=== PATIENT | male | born 1930 | race Caucasian/White ===

== ENCOUNTER 2021-03-18 13:49 | Inpatient (IN) | payer OTHER ==
[2021-03-18 14:34] VITALS: BMI 22.4
[2021-03-18] MEDS ORDERED: AZITHROMYCIN IVPB 500 MG in DEXTROSE 5%-WATER - 250 ML IVPB ONE (14:46)
[2021-03-18] MEDS ORDERED: CEFTRIAXONE 1 GM in DEXTROSE 5%-WATER - 50 ML IVPB ONE (14:46)
[2021-03-18] MEDS ORDERED: DEXAMETHASONE SOD PHOSPHATE 10 MG/1 ML VIAL IVPUSH ONE (14:46)
[2021-03-18] MEDS ORDERED: DEXAMETHASONE SOD PHOSPHATE 10 MG/1 ML VIAL ONE (14:50)
[2021-03-18] MEDS ORDERED: CEFTRIAXONE 1 GM/50 ML BAG ONE (14:50)
[2021-03-18 14:53] LABS: BASO % 0.5 % (0-2.0); EOS % 0.1 % (0-4.5); HEMATOCRIT 34.9 % (35.4-49); HEMOGLOBIN 11.4 GM/dL (11.7-16.9); LYMPH % 15.8 % (8-40); MCH 30.4 pg (25.7-33.7); MCHC 32.6 g/dl (32.0-35.9); MEAN CELL VOLUME 93.5 fl (80-96); MONO % 4.3 % (3.8-10.2); NEUT % 79.3 % (42.8-82.8); PLATELET COUNT 278 10^3/uL (134-434); RBC 3.73 M/mm3 (4.00-5.60); RDW 20.3 % (11.9-15.9); WHITE BLOOD COUNT 10.1 K/mm3 (4.0-10.0)
[2021-03-18] MEDS ORDERED: AZITHROMYCIN IVPB 500 MG/250 ML BAG IVPB ONE (15:10)
[2021-03-18 15:11] LABS: CHLORIDE 102 mmol/L (98-107); SODIUM 139 mmol/L (136-145)
[2021-03-18 15:14] LABS: ALBUMIN 2.6 g/dl (3.4-5.0); ANION GAP 3 MMOL/L (8-16); CO2 33 mmol/L (21-32); GLUCOSE,RANDOM 98 mg/dL (74-106)
[2021-03-18 15:17] LABS: SGOT/AST 35 U/L (15-37); SGPT/ALT 25 U/L (13-61)
[2021-03-18 15:18] LABS: CREATININE 1.5 mg/dL (0.55-1.3)
[2021-03-18 15:19] LABS: BILIRUBIN,TOTAL 0.6 mg/dL (0.2-1); TOT PROT 5.9 g/dl (6.4-8.2)
[2021-03-18 15:20] LABS: ALK PHOS 103 U/L (45-117)
[2021-03-18 15:40] LABS: ANISOCYTOSIS 0; MACROCYTOSIS 0; PLATELET ESTIMATE NORMAL
[2021-03-18] MEDS ORDERED: VANCOMYCIN 1 GM in D5W (PRE-DOCKED) 1,000 MG/250 ML IVPB ONE (16:59)
[2021-03-18 17:41] LABS: VENOUS PCO2 65.4 mmHg (38-52); VENOUS PH 7.38 (7.310-7.410)
[2021-03-18 17:42] LABS: BLOOD UREA NITROGEN 90.3 mg/dL (7-18); VENOUS BASE EXCESS 10.4 mmol/L (-2-2)
[2021-03-18 17:43] LABS: VENOUS O2 SATURATION 64.5 % (70-80)
[2021-03-18 17:45] LABS: CREATININE 1.6 mg/dL (0.55-1.3)
[2021-03-18] MEDS ORDERED: VANCOMYCIN 1 GRAM (PRE-DOCKED) 1,000 MG/250 ML BAG IVPB ONE (17:55)
[2021-03-18] MEDS ORDERED: ACETAMINOPHEN 325 MG TABLET (FP) PO PRN (18:07)
[2021-03-18] MEDS: DEXTROSE 5%-0.45% SALINE 1,000 ML IV SCH (18:42)
[2021-03-19 06:47] LABS: HEMATOCRIT 33.4 % (35.4-49); HEMOGLOBIN 10.9 GM/dL (11.7-16.9); MCH 30.6 pg (25.7-33.7); MCHC 32.7 g/dl (32.0-35.9); MEAN CELL VOLUME 93.6 fl (80-96); MEAN PLT VOLUME 8.2 fl (7.5-11.1); PLATELET COUNT 285 10^3/uL (134-434); RBC 3.57 M/mm3 (4.00-5.60); RDW 19.9 % (11.9-15.9); WHITE BLOOD COUNT 11.1 K/mm3 (4.0-10.0)
[2021-03-19 07:02] LABS: ALBUMIN 2.7 g/dl (3.4-5.0)
[2021-03-19 07:05] LABS: CREATININE 1.7 mg/dL (0.55-1.3)
[2021-03-19 07:06] LABS: BILIRUBIN,TOTAL 0.6 mg/dL (0.2-1); TOT PROT 5.9 g/dl (6.4-8.2)
[2021-03-19] MEDS ORDERED: DEXAMETHASONE SOD PHOSPHATE 10 MG/1 ML VIAL ONE (08:59)
[2021-03-19] MEDS ORDERED: ENOXAPARIN NA (PORCINE) 40 MG/0.4 ML DISP.SYRIN SQ ONE (08:59)
[2021-03-19] MEDS ORDERED: PANTOPRAZOLE SODIUM 40 MG VIAL ONE (08:59)
[2021-03-19] MEDS: PANTOPRAZOLE SODIUM 40 MG VIAL IVPUSH SCH (09:22)
[2021-03-19] MEDS: ENOXAPARIN NA (PORCINE) 40 MG/0.4 ML DISP.SYRIN SQ SCH (09:22)
[2021-03-19] MEDS ORDERED: DEXAMETHASONE SOD PHOSPHATE 10 MG/1 ML VIAL IVPUSH SCH (10:00)
[2021-03-19 10:25] LABS: ANISOCYTOSIS 1+; MACROCYTOSIS 0; PLATELET ESTIMATE NORMAL
[2021-03-19] MEDS ORDERED: methylPREDNISolone NA SUCC 40 MG/1 ML VIAL ONE (12:00)
[2021-03-19] MEDS: methylPREDNISolone NA SUCC 40 MG/1 ML VIAL IVPUSH SCH ×2 (12:17→17:55)
[2021-03-19] MEDS ORDERED: ALBUTEROL SO4 2.5/IPRATROPIUM 0.5 INH SOL 3 ML VIAL.NEB. NEB ONE (14:18)
[2021-03-19] MEDS ORDERED: SODIUM ZIRCONIUM CYCLOSILICATE (LOKELMA) 5 GM PACKET ONE (14:18)
[2021-03-19] MEDS: SODIUM ZIRCONIUM CYCLOSILICATE (LOKELMA) 5 GM PACKET PO SCH (14:43)
[2021-03-19] MEDS: ALBUTEROL SO4 2.5/IPRATROPIUM 0.5 INH SOL 3 ML VIAL.NEB. NEB SCH ×2 (14:43→21:01)
[2021-03-19] MEDS ORDERED: DEXTROSE 5%-WATER - 50 ML IVPB ONE (16:51)
[2021-03-19] MEDS ORDERED: cefTRIAXone SODIUM 1 GM VIAL ONE (16:51)
[2021-03-19] MEDS: CEFTRIAXONE 1 GM in DEXTROSE 5%-WATER - 50 ML IVPB SCH (16:54)
[2021-03-19] MEDS: DEXTROSE 5%-0.45% SALINE 1,000 ML IV SCH (21:56)
[2021-03-20] MEDS: methylPREDNISolone NA SUCC 40 MG/1 ML VIAL IVPUSH SCH ×3 (01:11→17:27)
[2021-03-20 07:26] LABS: HEMATOCRIT 27.4 % (35.4-49); HEMOGLOBIN 9.1 GM/dL (11.7-16.9); MCH 30.4 pg (25.7-33.7); MEAN CELL VOLUME 91.9 fl (80-96); MEAN PLT VOLUME 8.2 fl (7.5-11.1); PLATELET COUNT 187 10^3/uL (134-434); RBC 2.98 M/mm3 (4.00-5.60); RDW 19.6 % (11.9-15.9); WHITE BLOOD COUNT 7.8 K/mm3 (4.0-10.0)
[2021-03-20 07:36] LABS: CALCIUM 8.3 mg/dL (8.5-10.1)
[2021-03-20 07:37] LABS: ALBUMIN 2.4 g/dl (3.4-5.0); BLOOD UREA NITROGEN 103.9 mg/dL (7-18)
[2021-03-20 07:40] LABS: CREATININE 1.6 mg/dL (0.55-1.3)
[2021-03-20] MEDS: ALBUTEROL SO4 2.5/IPRATROPIUM 0.5 INH SOL 3 ML VIAL.NEB. NEB SCH ×3 (07:40→19:48)
[2021-03-20 07:41] LABS: TOT PROT 5.3 g/dl (6.4-8.2)
[2021-03-20 07:42] LABS: BILIRUBIN,TOTAL 0.4 mg/dL (0.2-1)
[2021-03-20 08:53] LABS: ANISOCYTOSIS 1+; MACROCYTOSIS 1+; PLATELET ESTIMATE NORMAL
[2021-03-20] MEDS ORDERED: DEXTROSE 5%-WATER - 50 ML IVPB ONE (10:37)
[2021-03-20] MEDS ORDERED: cefTRIAXone SODIUM 1 GM VIAL ONE (10:37)
[2021-03-20] MEDS: PANTOPRAZOLE SODIUM 40 MG VIAL IVPUSH SCH (10:45)
[2021-03-20] MEDS: ENOXAPARIN NA (PORCINE) 40 MG/0.4 ML DISP.SYRIN SQ SCH (10:45)
[2021-03-20] MEDS: SODIUM ZIRCONIUM CYCLOSILICATE (LOKELMA) 5 GM PACKET PO SCH (10:45)
[2021-03-20] MEDS: CEFTRIAXONE 1 GM in DEXTROSE 5%-WATER - 50 ML IVPB SCH (10:46)
[2021-03-20] MEDS: DEXTROSE 5%-0.45% SALINE 1,000 ML IV SCH (10:58)
[2021-03-21] MEDS: methylPREDNISolone NA SUCC 40 MG/1 ML VIAL IVPUSH SCH ×3 (02:11→17:27)
[2021-03-21] MEDS: DEXTROSE 5%-0.45% SALINE 1,000 ML IV SCH ×2 (02:11→13:23)
[2021-03-21 07:26] LABS: HEMATOCRIT 26.8 % (35.4-49); HEMOGLOBIN 8.6 GM/dL (11.7-16.9); MCH 30.3 pg (25.7-33.7); MCHC 32.1 g/dl (32.0-35.9); MEAN CELL VOLUME 94.6 fl (80-96); PLATELET COUNT 172 10^3/uL (134-434); RBC 2.83 M/mm3 (4.00-5.60); RDW 19.2 % (11.9-15.9); WHITE BLOOD COUNT 7.8 K/mm3 (4.0-10.0)
[2021-03-21 07:47] LABS: CALCIUM 8.4 mg/dL (8.5-10.1)
[2021-03-21 07:48] LABS: ALBUMIN 2.3 g/dl (3.4-5.0); BLOOD UREA NITROGEN 79.8 mg/dL (7-18)
[2021-03-21 08:06] LABS: CREATININE 1.1 mg/dL (0.55-1.3)
[2021-03-21 08:08] LABS: BILIRUBIN,TOTAL 0.2 mg/dL (0.2-1); TOT PROT 5.2 g/dl (6.4-8.2)
[2021-03-21] MEDS: ALBUTEROL SO4 2.5/IPRATROPIUM 0.5 INH SOL 3 ML VIAL.NEB. NEB SCH ×3 (08:14→20:00)
[2021-03-21] MEDS ORDERED: cefTRIAXone SODIUM 1 GM VIAL ONE (09:27)
[2021-03-21] MEDS ORDERED: DEXTROSE 5%-WATER - 50 ML IVPB ONE (09:27)
[2021-03-21 10:02] LABS: ANISOCYTOSIS 0; MACROCYTOSIS 0; PLATELET ESTIMATE NORMAL
[2021-03-21] MEDS: ENOXAPARIN NA (PORCINE) 40 MG/0.4 ML DISP.SYRIN SQ SCH (10:03)
[2021-03-21] MEDS: CEFTRIAXONE 1 GM in DEXTROSE 5%-WATER - 50 ML IVPB SCH (10:03)
[2021-03-21] MEDS: PANTOPRAZOLE SODIUM 40 MG VIAL IVPUSH SCH (10:04)
[2021-03-21] MEDS: SODIUM ZIRCONIUM CYCLOSILICATE (LOKELMA) 5 GM PACKET PO SCH (10:04)
[2021-03-21] MEDS: ZINC SULFATE 220 MG CAPSULE (FP) PO SCH (10:04)
[2021-03-21] MEDS: ASCORBIC ACID 250 MG TABLET (FP) PO SCH (10:04)
[2021-03-21] MEDS ORDERED: ALPRAZolam 0.25 MG TABLET PO PRN (10:12)
[2021-03-21] MEDS: FERROUS SO4 325 MG TABLET (FP) PO SCH (13:23)
[2021-03-22] MEDS: methylPREDNISolone NA SUCC 40 MG/1 ML VIAL IVPUSH SCH ×3 (02:27→17:45)
[2021-03-22 07:43] LABS: HEMATOCRIT 28.1 % (35.4-49); HEMOGLOBIN 9.2 GM/dL (11.7-16.9); MCH 30.6 pg (25.7-33.7); MCHC 32.6 g/dl (32.0-35.9); MEAN CELL VOLUME 93.9 fl (80-96); MEAN PLT VOLUME 7.6 fl (7.5-11.1); PLATELET COUNT 197 10^3/uL (134-434); RBC 2.99 M/mm3 (4.00-5.60); RDW 19.8 % (11.9-15.9); WHITE BLOOD COUNT 9.4 K/mm3 (4.0-10.0)
[2021-03-22] MEDS: ALBUTEROL SO4 2.5/IPRATROPIUM 0.5 INH SOL 3 ML VIAL.NEB. NEB SCH ×3 (07:44→20:00)
[2021-03-22 08:22] LABS: ALBUMIN 2.5 g/dl (3.4-5.0); CALCIUM 8.8 mg/dL (8.5-10.1)
[2021-03-22 08:26] LABS: TOT PROT 5.3 g/dl (6.4-8.2)
[2021-03-22 08:27] LABS: BILIRUBIN,TOTAL 0.4 mg/dL (0.2-1)
[2021-03-22] MEDS ORDERED: cefTRIAXone SODIUM 1 GM VIAL ONE (09:16)
[2021-03-22] MEDS ORDERED: DEXTROSE 5%-WATER - 50 ML IVPB ONE (09:17)
[2021-03-22] MEDS: ENOXAPARIN NA (PORCINE) 40 MG/0.4 ML DISP.SYRIN SQ SCH (09:53)
[2021-03-22] MEDS: PANTOPRAZOLE SODIUM 40 MG VIAL IVPUSH SCH (09:53)
[2021-03-22] MEDS: SODIUM ZIRCONIUM CYCLOSILICATE (LOKELMA) 5 GM PACKET PO SCH (09:54)
[2021-03-22] MEDS: FERROUS SO4 325 MG TABLET (FP) PO SCH (09:54)
[2021-03-22] MEDS: ASCORBIC ACID 250 MG TABLET (FP) PO SCH (09:54)
[2021-03-22] MEDS: ZINC SULFATE 220 MG CAPSULE (FP) PO SCH (09:54)
[2021-03-22] MEDS: CEFTRIAXONE 1 GM in DEXTROSE 5%-WATER - 50 ML IVPB SCH (09:54)
[2021-03-23] MEDS: methylPREDNISolone NA SUCC 40 MG/1 ML VIAL IVPUSH SCH ×3 (01:54→17:33)
[2021-03-23] MEDS: ALBUTEROL SO4 2.5/IPRATROPIUM 0.5 INH SOL 3 ML VIAL.NEB. NEB SCH ×3 (07:39→20:55)
[2021-03-23] MEDS ORDERED: cefTRIAXone SODIUM 1 GM VIAL ONE (08:57)
[2021-03-23] MEDS ORDERED: DEXTROSE 5%-WATER - 50 ML IVPB ONE (08:57)
[2021-03-23] MEDS: PANTOPRAZOLE SODIUM 40 MG VIAL IVPUSH SCH (09:16)
[2021-03-23] MEDS: DEXTROSE 5%-0.45% SALINE 1,000 ML IV SCH ×2 (09:16→10:00)
[2021-03-23] MEDS: ENOXAPARIN NA (PORCINE) 40 MG/0.4 ML DISP.SYRIN SQ SCH (09:17)
[2021-03-23] MEDS: ZINC SULFATE 220 MG CAPSULE (FP) PO SCH (09:17)
[2021-03-23] MEDS: FERROUS SO4 325 MG TABLET (FP) PO SCH (09:17)
[2021-03-23] MEDS: SODIUM ZIRCONIUM CYCLOSILICATE (LOKELMA) 5 GM PACKET PO SCH (09:17)
[2021-03-23] MEDS: CEFTRIAXONE 1 GM in DEXTROSE 5%-WATER - 50 ML IVPB SCH (09:17)
[2021-03-23] MEDS: ASCORBIC ACID 250 MG TABLET (FP) PO SCH (09:18)
[2021-03-23] MEDS: ALBUTEROL SO4 HFA INHALER IH SCH ×4 (11:34→23:00)
[2021-03-23] MEDS: AMINO ACIDS 4.25%/D5W 1,000 ML IV SCH (11:36)
[2021-03-24] MEDS: methylPREDNISolone NA SUCC 40 MG/1 ML VIAL IVPUSH SCH ×3 (02:13→17:04)
[2021-03-24] MEDS: ALBUTEROL SO4 2.5/IPRATROPIUM 0.5 INH SOL 3 ML VIAL.NEB. NEB SCH (07:55)
[2021-03-24] MEDS ORDERED: cefTRIAXone SODIUM 1 GM VIAL ONE (09:32)
[2021-03-24] MEDS ORDERED: DEXTROSE 5%-WATER - 50 ML IVPB ONE (09:32)
[2021-03-24] MEDS: FERROUS SO4 325 MG TABLET (FP) PO SCH (09:56)
[2021-03-24] MEDS: ASCORBIC ACID 250 MG TABLET (FP) PO SCH (09:56)
[2021-03-24] MEDS: ZINC SULFATE 220 MG CAPSULE (FP) PO SCH (09:56)
[2021-03-24] MEDS: CEFTRIAXONE 1 GM in DEXTROSE 5%-WATER - 50 ML IVPB SCH (09:58)
[2021-03-24] MEDS: PANTOPRAZOLE SODIUM 40 MG VIAL IVPUSH SCH (09:59)
[2021-03-24] MEDS: ENOXAPARIN NA (PORCINE) 40 MG/0.4 ML DISP.SYRIN SQ SCH (09:59)
[2021-03-24] MEDS: SODIUM ZIRCONIUM CYCLOSILICATE (LOKELMA) 5 GM PACKET PO SCH (09:59)
[2021-03-24] MEDS: ALBUTEROL SO4 HFA INHALER IH SCH ×4 (10:00→21:30)
[2021-03-24] MEDS: AMINO ACIDS 4.25%/D5W 1,000 ML IV SCH (10:00)
[2021-03-24] MEDS: MIRTAZAPINE 15 MG TABLET (FP) PO SCH (21:00)
[2021-03-25] MEDS: methylPREDNISolone NA SUCC 40 MG/1 ML VIAL IVPUSH SCH ×3 (01:54→17:22)
[2021-03-25 07:13] LABS: HEMATOCRIT 27.5 % (35.4-49); HEMOGLOBIN 9.1 GM/dL (11.7-16.9); MCH 31.3 pg (25.7-33.7); MCHC 33.2 g/dl (32.0-35.9); MEAN CELL VOLUME 94.3 fl (80-96); MEAN PLT VOLUME 7.8 fl (7.5-11.1); PLATELET COUNT 148 10^3/uL (134-434); RBC 2.91 M/mm3 (4.00-5.60); RDW 19.7 % (11.9-15.9); WHITE BLOOD COUNT 10.5 K/mm3 (4.0-10.0)
[2021-03-25 07:31] LABS: ALBUMIN 2.4 g/dl (3.4-5.0); BLOOD UREA NITROGEN 56.7 mg/dL (7-18); CALCIUM 8.4 mg/dL (8.5-10.1)
[2021-03-25 07:34] LABS: CREATININE 0.9 mg/dL (0.55-1.3)
[2021-03-25 07:35] LABS: BILIRUBIN,TOTAL 0.6 mg/dL (0.2-1)
[2021-03-25] MEDS ORDERED: cefTRIAXone SODIUM 1 GM VIAL ONE (08:24)
[2021-03-25] MEDS ORDERED: DEXTROSE 5%-WATER - 50 ML IVPB ONE (08:25)
[2021-03-25] MEDS: ASCORBIC ACID 250 MG TABLET (FP) PO SCH (09:08)
[2021-03-25] MEDS: FERROUS SO4 325 MG TABLET (FP) PO SCH (09:08)
[2021-03-25] MEDS: ENOXAPARIN NA (PORCINE) 40 MG/0.4 ML DISP.SYRIN SQ SCH (09:08)
[2021-03-25] MEDS: ZINC SULFATE 220 MG CAPSULE (FP) PO SCH (09:08)
[2021-03-25] MEDS: PANTOPRAZOLE SODIUM 40 MG VIAL IVPUSH SCH (09:09)
[2021-03-25] MEDS: SODIUM ZIRCONIUM CYCLOSILICATE (LOKELMA) 5 GM PACKET PO SCH (09:12)
[2021-03-25] MEDS: CEFTRIAXONE 1 GM in DEXTROSE 5%-WATER - 50 ML IVPB SCH (09:13)
[2021-03-25] MEDS: ALBUTEROL SO4 HFA INHALER IH SCH ×3 (09:54→23:16)
[2021-03-25] MEDS: AMINO ACIDS 4.25%/D5W 1,000 ML IV SCH (10:30)
[2021-03-25 10:45] LABS: ANISOCYTOSIS 2+; MACROCYTOSIS 0; PLATELET ESTIMATE DECREASED
[2021-03-25] MEDS: MIRTAZAPINE 15 MG TABLET (FP) PO SCH (23:16)
[2021-03-26] MEDS: methylPREDNISolone NA SUCC 40 MG/1 ML VIAL IVPUSH SCH ×3 (01:29→17:18)
[2021-03-26] MEDS: PANTOPRAZOLE SODIUM 40 MG VIAL IVPUSH SCH (10:30)
[2021-03-26] MEDS: SODIUM ZIRCONIUM CYCLOSILICATE (LOKELMA) 5 GM PACKET PO SCH (10:30)
[2021-03-26] MEDS: ASCORBIC ACID 250 MG TABLET (FP) PO SCH (10:30)
[2021-03-26] MEDS: ZINC SULFATE 220 MG CAPSULE (FP) PO SCH (10:30)
[2021-03-26] MEDS: ENOXAPARIN NA (PORCINE) 40 MG/0.4 ML DISP.SYRIN SQ SCH (10:30)
[2021-03-26] MEDS: FERROUS SO4 325 MG TABLET (FP) PO SCH (10:30)
[2021-03-26] MEDS: ALBUTEROL SO4 HFA INHALER IH SCH ×4 (10:40→21:30)
[2021-03-26] MEDS: MIRTAZAPINE 15 MG TABLET (FP) PO SCH (21:31)
[2021-03-27] MEDS: methylPREDNISolone NA SUCC 40 MG/1 ML VIAL IVPUSH SCH ×2 (00:59→09:38)
[2021-03-27 06:15] VITALS: TEMP 97.8
[2021-03-27 08:37] LABS: HEMATOCRIT 33.8 % (35.4-49); HEMOGLOBIN 10.4 GM/dL (11.7-16.9); MCH 31.5 pg (25.7-33.7); MCHC 30.7 g/dl (32.0-35.9); MEAN CELL VOLUME 102.7 fl (80-96); MEAN PLT VOLUME 8.8 fl (7.5-11.1); PLATELET COUNT 175 10^3/uL (134-434); RBC 3.29 M/mm3 (4.00-5.60); RDW 21.5 % (11.9-15.9); WHITE BLOOD COUNT 28.1 K/mm3 (4.0-10.0)
[2021-03-27] MEDS ORDERED: DEXTROSE 50%-WATER 25 GM/50 ML DISP.SYRIN ONE ×2 (08:54→09:35)
[2021-03-27 08:55] LABS: CHLORIDE 106 mmol/L (98-107); SODIUM 143 mmol/L (136-145)
[2021-03-27 09:03] LABS: ALBUMIN 2.4 g/dl (3.4-5.0); CALCIUM 8.6 mg/dL (8.5-10.1); CO2 22 mmol/L (21-32)
[2021-03-27 09:06] LABS: CREATININE 2.4 mg/dL (0.55-1.3); SGOT/AST 534 U/L (15-37); SGPT/ALT 675 U/L (13-61)
[2021-03-27 09:08] LABS: BILIRUBIN,TOTAL 1.4 mg/dL (0.2-1); TOT PROT 5.1 g/dl (6.4-8.2)
[2021-03-27 09:09] LABS: ALK PHOS 126 U/L (45-117)
[2021-03-27 09:14] LABS: ANION GAP 14 MMOL/L (8-16); BLOOD UREA NITROGEN 91.2 mg/dL (7-18); GLUCOSE,RANDOM 43 mg/dL (74-106)
[2021-03-27] MEDS: ENOXAPARIN NA (PORCINE) 40 MG/0.4 ML DISP.SYRIN SQ SCH (09:38)
[2021-03-27] MEDS: ZINC SULFATE 220 MG CAPSULE (FP) PO SCH (09:39)
[2021-03-27] MEDS: ASCORBIC ACID 250 MG TABLET (FP) PO SCH (09:39)
[2021-03-27] MEDS: SODIUM ZIRCONIUM CYCLOSILICATE (LOKELMA) 5 GM PACKET PO SCH (09:39)
[2021-03-27] MEDS: PANTOPRAZOLE SODIUM 40 MG VIAL IVPUSH SCH (09:39)
[2021-03-27] MEDS: FERROUS SO4 325 MG TABLET (FP) PO SCH (09:40)
[2021-03-27] MEDS: ALBUTEROL SO4 HFA INHALER IH SCH ×2 (09:40→15:40)
[2021-03-27 09:56] LABS: ANISOCYTOSIS 1+; MACROCYTOSIS 1+; OVALOCYTE 1+; PLATELET ESTIMATE NORMAL
[2021-03-27] MEDS ORDERED: SODIUM CHLORIDE 250 ML IV STA (10:04)
[2021-03-27] MEDS ORDERED: FUROSEMIDE 40 MG/4 ML INJECTABLE VIAL IVPUSH ONE (10:15)
[2021-03-27] MEDS ORDERED: DEXTROSE 50%-WATER - 25 GM/50 ML VIAL IVPUSH ONE ×3 (10:15→13:45)
[2021-03-27] MEDS ORDERED: INSULIN REGULAR HUMAN 100 UNITS/ML *VIAL* (FOR IVP) IVPUSH ONE (10:15)
[2021-03-27] MEDS ORDERED: ALBUTEROL SO4 2.5/IPRATROPIUM 0.5 INH SOL 3 ML VIAL.NEB. NEB PRN (13:07)
[2021-03-27 15:36] VITALS: BP 62/38; PULSE 89
== END 2021-03-27 20:20 | disposition expired | DRG 177 ==
LOC: JER 13:49 → JERBED 15:40 → J4W 03-19 15:33
PROVIDERS: ADMIT Internal Medicine; ATTEND Internal Medicine
DX: U07.1 COVID-19 (principal); J12.82 Pneumonia due to coronavirus disease 2019; J96.21 Acute and chronic respiratory failure with hypoxia; N17.9 Acute kidney failure, unspecified; I13.0 Hypertensive heart and chronic kidney disease with heart failure and stage 1 through stage 4 chronic kidney disease, or unspecified chronic kidney disease; E78.5 Hyperlipidemia, unspecified; N40.0 Benign prostatic hyperplasia without lower urinary tract symptoms; N31.9 Neuromuscular dysfunction of bladder, unspecified; E87.5 Hyperkalemia; I46.9 Cardiac arrest, cause unspecified; D64.9 Anemia, unspecified; J43.9 Emphysema, unspecified; N18.9 Chronic kidney disease, unspecified; I50.9 Heart failure, unspecified; M79.89 Other specified soft tissue disorders; Z99.81 Dependence on supplemental oxygen
CPT/HCPCS: 36415; 71045-TC-FY; 76775-TC; 76856-TC; 80048; 80053; 82550; 82728; 82803; 82962; 83605; 83615; 84132; 84484; 85025; 85027; 86140; 87040; 87804; 87899; 93005; 93010; 93971; 94640; 94660; 99291; C9803; J1100; U0003; U0005